=== PATIENT | male | born 1955 | race Caucasian/White ===

== ENCOUNTER 2019-09-07 06:20 | Day surgery (SDC) | payer BC ==
[2019-09-07] MEDS ORDERED: fentaNYL 100 MCG/2 ML SDV IV ONE ×3 (06:21→07:28)
[2019-09-07] MEDS ORDERED: Midazolam 1 MG/ML 2 ML SDV IV ONE ×3 (06:21→07:29)
[2019-09-07] MEDS ORDERED: fentaNYL 100 MCG/2 ML SDV ONE (06:27)
[2019-09-07] MEDS ORDERED: Midazolam 1 MG/ML 2 ML SDV ONE (06:27)
[2019-09-07] MEDS ORDERED: Dextrose 5%-0.45% NaCl 1,000 ML IV SCH (06:30)
--- NOTE | 2019-09-07 08:36 | OR ---
DATE: 09/07/2019 PROCEDURE: Esophagogastroduodenoscopy and multiple pinch biopsies. INSTRUMENT USED: [id number]-HQ190 Olympus video panendoscope. PREMEDICATIONS: No oral or topical anesthesia used. Fentanyl 100 mcg intravenous, Versed 2 mg intravenous. The procedure was done under pulse oximetry, BP recording, and civil defense director. INDICATION: The patient with long-standing heartburn and related abdominal pain, unexplained and not responsive to medical measures. Esophagogastroduodenoscopy is performed for detection of any active erosive lesions, Reyes esophagus and/or malignancy also under consideration, H. pylori status to be determined, endoscopic hemostasis therapy if needed. DESCRIPTION OF PROCEDURE: The scope was passed with ease. Adequate visualization of the esophagus was made from proximal to distal areas. No upper esophageal lesions identified. No distal esophageal stricture. No uphill or downhill esophageal varices. No Dorothy-Mott tear. Grade A erosive changes were noted by Dunn criteria. No esophageal polyp or tumor mass identified. Erythematous prominent benign-appearing folds were noted at the GE junction, multiple pinch biopsies were taken and sent for histopathology. No proximal gastric varices noted. Gastric fundus examination by retroflexion showed no malignant lesions. In the mid gastric body, 3 mm sized benign- appearing polyp was noted, photograph was taken, pinch biopsy was obtained and sent for histopathology. No gastric ulcer, malignant mass, or vascular ectasia identified. Multiple pinch biopsies were taken from the gastric antrum and proximal body and sent for PyloriTek test for H. pylori and histopathology. Duodenal bulb showed no ulcer. Visualized second part of the duodenum was unremarkable. No bleeding was noted from any of the visualized areas at the completion of examination. Photographs were taken of the duodenal bulb, gastric antrum, fundus, and distal esophagus. IMPRESSION: 1. Grade A gastroesophageal reflux disease. 2. Diminutive gastric body polyp. The patient tolerated the procedure well. [facility] /[id number]
[2019-09-07 09:30] VITALS: BP 136/77; PULSE 64
== END 2019-09-07 09:46 | disposition home or self-care (01) ==
LOC: DL.ENDO 06:20
PROVIDERS: ATTEND Internal Medicine Gastroenterology
DX: K31.7 Polyp of stomach and duodenum (principal); E66.09 Other obesity due to excess calories; K21.0 Gastro-esophageal reflux disease with esophagitis; M41.9 Scoliosis, unspecified; E78.5 Hyperlipidemia, unspecified; I11.9 Hypertensive heart disease without heart failure; G47.33 Obstructive sleep apnea (adult) (pediatric); G47.00 Insomnia, unspecified; R73.9 Hyperglycemia, unspecified; K80.20 Calculus of gallbladder without cholecystitis without obstruction; Z79.899 Other long term (current) drug therapy; Z86.010 Personal history of colon polyps; Z79.82 Long term (current) use of aspirin; Z98.890 Other specified postprocedural states; Z68.37 Body mass index [BMI] 37.0-37.9, adult
CPT/HCPCS: 43239; 87077; J2250; J3010; J7042